=== PATIENT | male | born 1980 | race Hispanic/Latino ===

== ENCOUNTER 2022-10-10 18:58 | Emergency (ER) | payer OTHER ==
[~2022-10-10] VITALS: Ht 177.8 cm; Wt 103.2 kg
[2022-10-10 21:53] VITALS: BP 124/84
== END 2022-10-10 21:53 | disposition home or self-care (01) ==
LOC: ED 18:58
DX: S06.0X0A Concussion without loss of consciousness, initial encounter (principal); S16.1XXA Strain of muscle, fascia and tendon at neck level, initial encounter; V89.3XXA Person injured in unspecified nonmotor-vehicle accident, traffic, initial encounter
CPT/HCPCS: 36415; 70450; 71045; 72040; 72125; 80053; 85025; 86850; 86900; 86901; G0480